=== PATIENT | female | born 1995 | race African-American/Black ===

== ENCOUNTER 2018-01-24 22:03 | Emergency (ER) | payer OTHER ==
[2018-01-25 00:48] LABS: Pregnancy Test - Urine (BHCG) Negative (Negative); Pregu Control Background? CLEAR/WHITE (CLR/WHITE); Pregu Control Bar Appear? YES (CONTROL BAR); Specific Gravity 1.026 (1.002-1.036)
[2018-01-25] MEDS ORDERED: Ketorolac Tromethamine 30 MG/ML VIAL ONE (01:08)
--- NOTE | 2018-01-25 08:11 | RAD ---
CERVICAL SPINE THREE VIEWS: HISTORY: A 2-year-old female with a history of neck pain. FINDINGS: Portions of C1 and the odontoid are obscured on the AP open-mouth view. No evidence for prevertebral soft tissue swelling. No malalignment. IMPRESSION: No acute process involving the visualized cervical spine. POS: OFF
== END 2018-01-25 01:40 | disposition home or self-care (01) ==
LOC: ERS 22:03
DX: M54.2 Cervicalgia (principal); V43.52XA Car driver injured in collision with other type car in traffic accident, initial encounter
CPT/HCPCS: 72040; 81025; 96372; J1885

== ENCOUNTER 2018-08-07 15:37 | Emergency (ER) | payer OTHER ==
[~2018-08-07 15:37] MED LIST: ISOVUE-370 76%-LOCM 1 ML ONE
[2018-08-07] MEDS ORDERED: Ondansetron HCl/PF 4 MG/2 ML Vial ONE (16:00)
[2018-08-07] MEDS ORDERED: Morphine 2 MG/ML SYRINGE ONE (16:00)
[2018-08-07 17:06] LABS: BHCG - Serum Negative (NEGATIVE); Pregs Control Background? CLEAR/WHITE (CLR/WHITE); Pregs Control Bar Appear? YES (CONTROL BAR)
[2018-08-07] MEDS ORDERED: Ketorolac Tromethamine 30 MG/ML VIAL ONE (17:21)
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
== END 2018-08-07 19:08 | disposition home or self-care (01) ==
LOC: ERS 15:37
DX: M54.5 Low back pain (principal); M54.6 Pain in thoracic spine; M54.2 Cervicalgia; R51 Headache; V43.52XA Car driver injured in collision with other type car in traffic accident, initial encounter; F31.9 Bipolar disorder, unspecified
CPT/HCPCS: 36415; 70450; 71260; 72125; 74177; 84703; 96372; J1885; J2270; J2405

== ENCOUNTER 2018-10-24 05:21 | Emergency (ER) | payer OTHER ==
[2018-10-24 06:16] LABS: Bilirubin Negative (Negative); Blood, Urine Large (Negative); Clarity CLEAR (Clear); Glucose, Urine (Dipstick) Negative (Negative); Leukocyte Negative (Negative); Nitrite Negative (Negative); Protein, Urine (Dipstick) Negative (Neg-Trace); Specific Gravity, Urine 1.011 (1.002-1.036); Urobilinogen 0.2 mg/dL (0.2-1.0); pH, Urine 6.5 (5.0-9.0)
[2018-10-24 06:19] LABS: Bacteria/HPF Rare-Few HPF (None Seen); Hyaline Casts/LPF 0-3 HYALINE CAST LPF (0-3 Hyaline); Pathc Cast-AUWi Flag 0.87 (0-2.49); RBC/HPF 0-3 HPF (0-3)
[2018-10-24 06:28] LABS: #Basophils 0.1 thou/uL (0.0-0.2); #Eosinphils 0.1 thou/uL (0.0-0.7); #Lymphocytes 3.7 thou/uL (1.20-3.40); #Monocytes 0.9 thou/uL (0.11-0.59); #Neutrophils 9.4 thou/uL (1.40-6.50); %Basophils 0.7 % (0.0-1.0); %Eosinophils 0.5 % (0.0-10.0); %Monocytes 6.1 % (0.0-10.0); %Neutrophils 66.7 % (42.0-75.0); Mean Corpuscular HGB CONC 33.8 g/dL (32.0-36.0); Mean Corpuscular Hemoglobin 31.6 pg (27.0-31.0); Mean Corpuscular Volume 93.4 fL (78.0-98.0); Mean Platelet Volume 9.4 fL (7.4-10.4); Platelet Count 260 thou/uL (130-400); RBC Distribution Width 11.3 % (11.5-14.5); Red Blood Cell (RBC) Count 4.45 mill/uL (4.20-5.40); White Blood Cell (WBC) Count 14.1 thou/uL (4.8-10.8)
--- NOTE | 2018-10-24 07:32 | ULT ---
TRANSABDOMINAL AND TRANSVAGINAL PELVIC ULTRASOUND WITH SPECTRAL DOPPLER EVALUATION: Date: 10/24/18 INDICATION: History of pelvic pain with bleeding. FINDINGS: The uterus measures 10.0 x 4.3 x 5.3 cm. There is a subendometrial fibroid measuring 1.3 cm involving the right lateral aspect of the uterine fundus. This was not definitely seen on the comparison exam dated 02/26/15. There is an intrauterine gestational sac present within the endometrial canal with a mean sac diamete r of 4.6 mm, giving an estimated gestational age of 5 weeks/2 days. No intrauterine pole or yol k sac is identified. The estimated due date by ultrasound is 06/24/2019. The right ovary measures 3.6 x 1.7 x 2.8 cm. The left ovary measures 3.7 x 3.2 x 1.8 cm. There is nor mal flow to both ovaries. No free fluid is evident. IMPRESSION: 1. Suspected early intrauterine gestational sac present. Recommend correlation with beta HCG level. No intrauterine pole or yolk sac is identified. Sonographic follow-up is recommended. 2. Small hypoechoic fibroid seen within the subendometrial region of the right lateral uterine fundu s. POS: BH
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
[2018-10-25 03:19] LABS: Chlamydia by PCR Not Detected (NotDetected); GC by PCR Not Detected (NotDetected)
== END 2018-10-24 09:15 | disposition home or self-care (01) ==
LOC: ERS 05:21
DX: O03.4 Incomplete spontaneous abortion without complication (principal); F31.9 Bipolar disorder, unspecified
CPT/HCPCS: 36415; 76856; 81003; 81015; 84702; 85025; 86900; 86901; 87480; 87491; 87510; 87591; 87660

== ENCOUNTER 2019-03-26 11:15 | Outpatient (CLI) | payer OTHER ==
--- NOTE | 2019-03-26 12:05 | ULT ---
EXAM: OB ultrasound COMPARISON: None. HISTORY: female. Evaluate anatomy. TECHNIQUE: Multiplanar grayscale and color Doppler transabdominal sonographic images are obtained. FINDINGS: There is a single intrauterine gestation in cephalic presentation. Cardiac Doppler demonstr ates heart tones with a heart rate of 155 beats per minute. The placenta is located posteriorly and at the fundus without evidence of placenta previa. Subjectively, there is a normal am ount of amniotic fluid. Amniotic fluid index was not calculated on this exam. The cervical length based on transabdominal imaging measures 2.9 centimeters. biometry measurements: BPD 4.51 cm -- 19 weeks 5 days HC 16.49 cm -- 19 weeks 2 days AC 13.7 cm -- 19 weeks 1 day FL 2.96 cm -- 19 weeks 1 day The estimated gestational age by ultrasound is 19 weeks 3 days with an DARIAN on08/17/2019. Gestational age by the last menstrual period is 17 weeks 5 days which does represent a discrepancy in gestational age compared to ultrasound. The estimated weight by ultrasound is 277 g per and series 10 ounces). This represents 98 perce ntile for weight. A 4 chambered heart is visualized. The cerebellum, visualized portions of the spine, kidneys, u rinary bladder, and cord insertion demonstrate a normal sonographic appearance. A three-vessel cord is not visualized, but there is flow on either side of the urinary bladder sugges ting a three-vessel cord.. No anomalies are seen. IMPRESSION: 1. Single intrauterine gestation in cephalic presentation with heart tones documented. Estimat ed gestational age by ultrasound is 19 weeks 3 days with DARIAN on 08/17/2019. 2. Estimated weight is 277 g (10 ounces).
== END 2019-03-26 11:16 | disposition home or self-care (01) ==
LOC: BICULT 11:15
PROVIDERS: ATTEND Family Medicine
DX: O09.892 Supervision of other high risk pregnancies, second trimester (principal); Z3A.19 19 weeks gestation of pregnancy
CPT/HCPCS: 76805

== ENCOUNTER 2019-04-09 10:32 | Outpatient (CLI) | payer OTHER ==
--- NOTE | 2019-04-09 11:00 | ULT ---
Exam: Limited OB ultrasound: HISTORY: Examination performed for cervical length evaluation COMPARISON: 03/26/2019 FINDINGS: Cephalic presentation. heart rate 158 bpm; cervical length equals 4.5 cm IMPRESSION: Cervical length 4.5 cm.
== END 2019-04-09 10:33 | disposition home or self-care (01) ==
LOC: SCSULT 10:32
PROVIDERS: ATTEND Family Medicine
DX: O09.892 Supervision of other high risk pregnancies, second trimester (principal)
CPT/HCPCS: 76815

== ENCOUNTER 2019-08-14 11:22 | Inpatient (IN) | payer OTHER ==
[2019-08-14 11:58] VITALS: BMI 24.7
[2019-08-14] MEDS: Lactated Ringer's 1,000 ML IV SCH ×2 (12:00→18:58)
[2019-08-14] MEDS ORDERED: FLU VACC QS2019-20(6MOS UP)/PF 60 MCG/0.5 ML SYRINGE IM ONE (12:15)
[2019-08-14 12:54] LABS: #Lymphocytes 1.8 thou/uL (1.20-3.40); #Monocytes 0.6 thou/uL (0.11-0.59); #Neutrophils 10.7 thou/uL (1.40-6.50); %Basophils 0.3 % (0.0-1.0); %Eosinophils 0.2 % (0.0-10.0); %Lymphocytes 13.5 % (21.0-51.0); %Monocytes 4.4 % (0.0-10.0); %Neutrophils 81.6 % (42.0-75.0); Mean Corpuscular HGB CONC 34.1 g/dL (32.0-36.0); Mean Corpuscular Volume 90.7 fL (78.0-98.0); Mean Platelet Volume 11.1 fL (7.4-10.4); Platelet Count 168 thou/uL (130-400); RBC Distribution Width 11.7 % (11.5-14.5); Red Blood Cell (RBC) Count 3.57 mill/uL (4.20-5.40); White Blood Cell (WBC) Count 13.1 thou/uL (4.8-10.8)
[2019-08-14 13:16] LABS: ALT (SGPT) 11 U/L (8-55); AST (SGOT) 15 U/L (5-34); Albumin 3.3 g/dL (3.5-5.0); Alkaline Phosphatase 117 U/L (40-110); Anion Gap 13 mmol/L (10-20); BUN (Urea Nitrogen) 7 mg/dL (7.0-18.7); Bilirubin, Total 0.2 mg/dL (0.2-1.2); Calc. Creatinine Clearance 157 mL/min (70-130); Calcium 8.9 mg/dL (7.8-10.44); Carbon Dioxide 22 mmol/L (22-29); Chloride 105 mmol/L (98-107); Estimated GFR-MDRD Greater than 90; Globulin 2.9 g/dL (2.4-3.5); Glucose 101 mg/dL (70-105); Protein, Total 6.2 g/dL (6.0-8.3); Sodium 136 mmol/L (136-145)
[2019-08-14 15:37] LABS: Creatinine, Urine 42.69 mg/dL (47-110); Protein, Urine Random Quant Less than 10 mg/dL (1-14)
[2019-08-14] MEDS ORDERED: Ibuprofen 800 MG TAB PO PRN (17:17)
[2019-08-14] MEDS ORDERED: Butorphanol Tartrate 1 MG/ML VIAL SLOW IVP PRN (17:17)
[2019-08-14] MEDS ORDERED: Carboprost 250 MCG/ML AMP IM PRN (17:17)
[2019-08-14] MEDS ORDERED: HYDROcodone/Acetaminophen 5/325 mg Tablet PO PRN (17:17)
[2019-08-14] MEDS ORDERED: Ondansetron PF 4 MG/2 ML Vial IVP PRN (17:17)
[2019-08-14] MEDS ORDERED: Diphenoxylate HCl/Atropine Tablet PO PRN (17:17)
[2019-08-14] MEDS ORDERED: Promethazine HCl 25 MG/ML VIAL IM PRN (17:17)
[2019-08-14] MEDS ORDERED: Misoprostol 200 MCG TAB PR PRN (17:17)
[2019-08-14] MEDS ORDERED: Lidocaine 1% (PF) 30 ML VIAL SC PRN (17:17)
[2019-08-14] MEDS ORDERED: hydrALAZINE 20 MG/ML VIAL SLOW IVP PRN (17:17)
[2019-08-14] MEDS ORDERED: Penicillin G Potassium 5 MILL.UNITS in Sodium Chloride 0.9% 100 ML IVPB ONE (17:30)
[2019-08-14] MEDS ORDERED: NS w/ Oxytocin 10 units 500 ML IV SCH ×2 (17:30)
[2019-08-14 18:52] LABS: HBSAg Index 0.18 S/CO (0-0.99); Hep B Surf Ag Non-Reactive S/CO (NonReactive); Syphilis Antibody Nonreactive (Nonreactive); Syphilis Antibody Index 0.04 S/CO (<1.00 Non-Reactive)
[2019-08-14] MEDS: Misoprostol 100 MCG TAB PO SCH (23:22)
[2019-08-15] MEDS: Penicillin G 2.5 MILL.units 2.5 MILL.UNITS in Premix Bag 1 BAG IVPB SCH ×2 (03:26→07:20)
[2019-08-15] MEDS ORDERED: Fentanyl 4 mcg/Bup 0.1% Cadd 100 ML ONE (04:10)
[2019-08-15] MEDS: NS / Oxytocin 40 units/1000ml 1,000 ML IV PRN ×2 (08:05→09:08)
[2019-08-15] MEDS ORDERED: Amlodipine 5 MG TAB PO SCH (09:00)
[2019-08-15] MEDS ORDERED: hydrALAZINE 20 MG/ML VIAL SLOW IVP PRN (09:24)
[2019-08-15] MEDS ORDERED: Ondansetron PF 4 MG/2 ML Vial IVP PRN (09:24)
[2019-08-15] MEDS ORDERED: Bisacodyl 10 MG SUPP PR PRN (09:24)
[2019-08-15] MEDS ORDERED: diphenhydrAMINE 25 MG CAP PO PRN (09:24)
[2019-08-15] MEDS ORDERED: Benzocaine-Menthol 82.5 ML CAN TOP PRN (09:24)
[2019-08-15] MEDS ORDERED: Adacel (T-DAP) 0.5 ML SYRINGE IM ONE (09:24)
[2019-08-15] MEDS ORDERED: Preparation H Ointment 28 GM TUBE PR PRN (09:24)
[2019-08-15] MEDS ORDERED: Lanolin Ointment 7 GM TUBE TOP PRN (09:24)
[2019-08-15] MEDS ORDERED: NS / Oxytocin 40 units/1000ml 1,000 ML IV SCH (09:24)
[2019-08-15] MEDS ORDERED: Milk Of Magnesia 30 ML UDCUP PO PRN (09:24)
[2019-08-15] MEDS: Misoprostol 100 MCG TAB PO SCH (10:17)
[2019-08-15] MEDS: HYDROcodone/Acetaminophen 5/325 mg Tablet PO PRN ×2 (12:12→15:16)
[2019-08-15] MEDS: Ibuprofen 800 MG TAB PO SCH ×2 (13:32→21:48)
[2019-08-15] MEDS: Ferrous Sulfate 325 MG TAB PO SCH (17:23)
[2019-08-15] MEDS: Docusate Calcium (SURFAK) 240 MG CAP PO SCH (21:48)
[2019-08-16] MEDS: HYDROcodone/Acetaminophen 5/325 mg Tablet PO PRN ×3 (00:36→20:47)
[2019-08-16 05:25] LABS: Mean Corpuscular HGB CONC 33.3 g/dL (32.0-36.0); Mean Corpuscular Hemoglobin 31.1 pg (27.0-31.0); Mean Corpuscular Volume 93.4 fL (78.0-98.0); Platelet Count 148 thou/uL (130-400); RBC Distribution Width 11.8 % (11.5-14.5); Red Blood Cell (RBC) Count 3.19 mill/uL (4.20-5.40); White Blood Cell (WBC) Count 13.8 thou/uL (4.8-10.8)
[2019-08-16] MEDS: Ibuprofen 800 MG TAB PO SCH ×3 (05:52→21:33)
[2019-08-16] MEDS: Penicillin G 2.5 MILL.units 2.5 MILL.UNITS in Premix Bag 1 BAG IVPB SCH ×2 (07:25→07:26)
[2019-08-16] MEDS: Docusate Calcium (SURFAK) 240 MG CAP PO SCH ×2 (09:32→21:33)
[2019-08-16] MEDS: Prenatal Vitamin 1 TAB PO SCH (09:32)
[2019-08-16] MEDS: Amlodipine 5 MG TAB PO SCH (09:32)
[2019-08-16] MEDS: Ferrous Sulfate 325 MG TAB PO SCH ×2 (09:33→18:13)
[2019-08-17] MEDS: HYDROcodone/Acetaminophen 5/325 mg Tablet PO PRN (02:21)
[2019-08-17] MEDS: Ibuprofen 800 MG TAB PO SCH (06:29)
[2019-08-17 08:32] VITALS: TEMP 98.6
[2019-08-17] MEDS: Ferrous Sulfate 325 MG TAB PO SCH (08:54)
[2019-08-17] MEDS: Docusate Calcium (SURFAK) 240 MG CAP PO SCH (08:56)
[2019-08-17] MEDS: Prenatal Vitamin 1 TAB PO SCH (08:56)
[2019-08-17] MEDS: Amlodipine 5 MG TAB PO SCH (08:56)
[2019-08-17 08:58] VITALS: BP 125/81
== END 2019-08-17 10:54 | disposition home or self-care (01) | DRG 807 ==
LOC: L&D/OP 11:22 → L&D 11:30 → 3SE 08-15 10:13
PROVIDERS: ADMIT Family Medicine; ATTEND Family Medicine
PROC: 10E0XZZ Delivery of Products of Conception, External Approach (ICD-10-PCS; principal; 2019-08-14)
PROC: 3E033VJ Introduction of Other Hormone into Peripheral Vein, Percutaneous Approach (ICD-10-PCS; 2019-08-14)
DX: O76 Abnormality in fetal heart rate and rhythm complicating labor and delivery (principal); Z37.0 Single live birth; O13.9 Gestational [pregnancy-induced] hypertension without significant proteinuria, unspecified trimester; O99.824 Streptococcus B carrier state complicating childbirth; Z3A.39 39 weeks gestation of pregnancy
CPT/HCPCS: 36415; 80053; 82570; 84156; 85025; 85027; 86780; 86850; 86900; 86901; 87340; J2540; J3490

== ENCOUNTER 2020-01-08 15:11 | Emergency (ER) | payer OTHER ==
[2020-01-08] MEDS ORDERED: Acetaminophen 500 MG TAB ONE (15:39)
[2020-01-08] MEDS ORDERED: Azithromycin 500 MG VIAL ONE (15:59)
[2020-01-08] MEDS ORDERED: cefTRIAXone\\ROCEPHIN 1 GM VIAL ONE (15:59)
[2020-01-08 16:06] LABS: #Lymphocytes 0.4 thou/uL (1.20-3.40); #Monocytes 0.6 thou/uL (0.11-0.59); #Neutrophils 8.2 thou/uL (1.40-6.50); %Basophils 0.1 % (0.0-1.0); %Eosinophils 0.1 % (0.0-10.0); %Lymphocytes 3.9 % (21.0-51.0); %Neutrophils 89.9 % (42.0-75.0); Hemoglobin 11.9 g/dL (12.0-16.0); Mean Corpuscular HGB CONC 34.9 g/dL (32.0-36.0); Mean Corpuscular Hemoglobin 31.2 pg (27.0-31.0); Mean Corpuscular Volume 89.5 fL (78.0-98.0); Mean Platelet Volume 8.9 fL (7.4-10.4); Platelet Count 234 thou/uL (130-400); RBC Distribution Width 11.9 % (11.5-14.5); Red Blood Cell (RBC) Count 3.82 mill/uL (4.20-5.40); White Blood Cell (WBC) Count 9.1 thou/uL (4.8-10.8)
[2020-01-08 16:52] LABS: Globulin 2.9 g/dL (2.4-3.5); Glucose 89 mg/dL (70-105)
[2020-01-08 17:23] LABS: ALT (SGPT) 9 U/L (8-55); AST (SGOT) 12 U/L (5-34); Alkaline Phosphatase 73 U/L (40-110); Anion Gap 14 mmol/L (10-20); BUN (Urea Nitrogen) 8 mg/dL (7.0-18.7); Bilirubin, Total 0.3 mg/dL (0.2-1.2); Calc. Creatinine Clearance 0 mL/min (70-130); Calcium 9.4 mg/dL (7.8-10.44); Carbon Dioxide 20 mmol/L (22-29); Chloride 104 mmol/L (98-107); Estimated GFR-MDRD Greater than 90; Lipase 25 U/L (8-78); Potassium 3.5 mmol/L (3.5-5.1); Protein, Total 7.1 g/dL (6.0-8.3); Sodium 134 mmol/L (136-145)
[2020-01-08 17:34] LABS: Lactic Acid 0.9 mmol/L (0.5-2.2)
[2020-01-08 18:05] LABS: Bilirubin Negative (Negative); Blood, Urine Negative (Negative); Clarity Clear (Clear); Glucose, Urine (Dipstick) Normal (Negative); Leukocyte Negative Leu/uL (Negative); Nitrite Negative (Negative); Protein, Urine (Dipstick) 20 mg/dL (Neg-Trace); Urobilinogen Normal mg/dL (Less than 2)
[2020-01-08 18:06] LABS: Mucous/LPF Rare LPF (<2+)
[2020-01-08 18:15] LABS: Bacteria/HPF Rare-Few HPF (None Seen)
--- NOTE | 2020-01-08 18:44 | RAD ---
EXAM: CHEST ONE VIEW HISTORY: Cough and back pain. COMPARISON: 02/08/2014 FINDINGS: The cardiac silhouette and pulmonary vasculature is within normal limits. The lungs are clear. The os seous structures are intact. No interval change. IMPRESSION: No acute cardiopulmonary process.
--- NOTE | 2020-01-10 13:43 | EKG ---
Test Reason : Blood Pressure : / mmHG Vent. Rate : 121 BPM Atrial Rate : 121 BPM P-R Int : 150 ms QRS Dur : 072 ms QT Int : 314 ms P-R-T Axes : 044 083 021 degrees QTc Int : 445 ms Sinus tachycardia Nonspecific T wave abnormality Abnormal ECG Confirmed by MILTON MEJIA ([id number]), newspaper photo editor ANKIT PHILLIPS ([id number]) on 01/10/2020 1:43:38 PM Referred By: Confirmed By:MILTON Machado
== END 2020-01-08 20:27 | disposition home or self-care (01) ==
LOC: ERS 15:11
DX: O21.9 Vomiting of pregnancy, unspecified (principal); O99.511 Diseases of the respiratory system complicating pregnancy, first trimester; J06.9 Acute upper respiratory infection, unspecified; O16.1 Unspecified maternal hypertension, first trimester; O99.341 Other mental disorders complicating pregnancy, first trimester; F31.9 Bipolar disorder, unspecified; Z3A.10 10 weeks gestation of pregnancy; Z79.899 Other long term (current) drug therapy
CPT/HCPCS: 71045; 80053; 81001; 83605; 83690; 85025; 87040; 87804; 93005; 96361; 96365; 96366; 96367; J0456; J0696

== ENCOUNTER 2020-01-30 23:56 | Emergency (ER) | payer OTHER ==
[2020-01-31 00:28] LABS: Bacteria/HPF None Seen HPF (None Seen); Bilirubin Negative (Negative); Blood, Urine Negative (Negative); Clarity Turbid (Clear); Glucose, Urine (Dipstick) Normal (Negative); Leukocyte 75 Leu/uL (Negative); Nitrite Negative (Negative); Protein, Urine (Dipstick) 20 mg/dL (Neg-Trace); Urobilinogen 3 mg/dL (Less than 2)
[2020-01-31 00:41] LABS: #Lymphocytes 1.4 thou/uL (1.20-3.40); #Monocytes 0.5 thou/uL (0.11-0.59); %Basophils 0.3 % (0.0-1.0); %Eosinophils 0.1 % (0.0-10.0); %Lymphocytes 10.7 % (21.0-51.0); %Monocytes 3.6 % (0.0-10.0); %Neutrophils 85.3 % (42.0-75.0); Mean Corpuscular HGB CONC 35.9 g/dL (32.0-36.0); Mean Corpuscular Hemoglobin 32.2 pg (27.0-31.0); Mean Corpuscular Volume 89.6 fL (78.0-98.0); Mean Platelet Volume 9.4 fL (7.4-10.4); Platelet Count 204 thou/uL (130-400); RBC Distribution Width 11.7 % (11.5-14.5); Red Blood Cell (RBC) Count 3.72 mill/uL (4.20-5.40); White Blood Cell (WBC) Count 12.9 thou/uL (4.8-10.8)
[2020-01-31 00:52] LABS: ALT (SGPT) 7 U/L (8-55); AST (SGOT) 11 U/L (5-34); Alkaline Phosphatase 63 U/L (40-110); Anion Gap 14 mmol/L (10-20); BUN (Urea Nitrogen) 7 mg/dL (7.0-18.7); Bilirubin, Total 0.3 mg/dL (0.2-1.2); Calc. Creatinine Clearance 0 mL/min (70-130); Calcium 9.5 mg/dL (7.8-10.44); Carbon Dioxide 18 mmol/L (22-29); Chloride 106 mmol/L (98-107); Estimated GFR-MDRD Greater than 90; Globulin 2.8 g/dL (2.4-3.5); Glucose 83 mg/dL (70-105); Potassium 3.5 mmol/L (3.5-5.1); Protein, Total 6.8 g/dL (6.0-8.3); Sodium 134 mmol/L (136-145)
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
== END 2020-01-31 02:49 | disposition home or self-care (01) ==
LOC: ERS 23:56
DX: O99.89 Other specified diseases and conditions complicating pregnancy, childbirth and the puerperium (principal); R10.30 Lower abdominal pain, unspecified; O10.911 Unspecified pre-existing hypertension complicating pregnancy, first trimester; O99.341 Other mental disorders complicating pregnancy, first trimester; F41.9 Anxiety disorder, unspecified; F31.9 Bipolar disorder, unspecified; Z79.899 Other long term (current) drug therapy; V49.9XXA Car occupant (driver) (passenger) injured in unspecified traffic accident, initial encounter; Z3A.12 12 weeks gestation of pregnancy
CPT/HCPCS: 36415; 76856; 80053; 81003; 81015; 85025; 86900; 86901

== ENCOUNTER 2022-10-21 18:53 | Inpatient (IN) | payer OTHER ==
[2022-10-21] MEDS ORDERED: Boostrix 0.5 ML (Tdap) VIAL (>/=7 yrs of age) ONE (19:22)
[2022-10-21 19:33] LABS: #Lymphocytes 2.4 thou/uL (1.20-3.40); #Monocytes 0.7 thou/uL (0.11-0.59); #Neutrophils 11.7 thou/uL (1.40-6.50); %Basophils 0.2 % (0.0-1.0); %Eosinophils 0.2 % (0.0-10.0); %Lymphocytes 16.2 % (21.0-51.0); %Monocytes 4.6 % (0.0-10.0); %Neutrophils 78.8 % (42.0-75.0); Hemoglobin 13.1 g/dL (12.0-16.0); Mean Corpuscular HGB CONC 32.8 g/dL (32.0-36.0); Mean Corpuscular Hemoglobin 31.7 pg (27.0-31.0); Mean Corpuscular Volume 96.6 fl (78.0-98.0); Mean Platelet Volume 9.5 fL (7.4-10.4); Platelet Count 213 10x3/uL (130-400); RBC Distribution Width 11.5 % (11.5-14.5); Red Blood Cell (RBC) Count 4.14 mill/uL (4.20-5.40); White Blood Cell (WBC) Count 14.8 10x3/uL (4.8-10.8)
[2022-10-21 19:56] LABS: ALT (SGPT) 18 U/L (8-55); AST (SGOT) 14 U/L (5-34); Acetaminophen Less than 10.0 mcg/mL (10.0-30.0); Albumin 4.1 g/dL (3.5-5.0); Alcohol Less than 10 mg/dL (Less than 10); Alkaline Phosphatase 83 U/L (40-110); Anion Gap 13 mmol/L (10-20); BUN (Urea Nitrogen) 12 mg/dL (7.0-18.7); Bilirubin, Total 0.3 mg/dL (0.2-1.2); Calc. Creatinine Clearance 0 mL/min (70-130); Calcium 9.1 mg/dL (7.8-10.44); Carbon Dioxide 22 mmol/L (22-29); Chloride 108 mmol/L (98-107); Estimated GFR 98; Globulin 2.8 g/dL (2.4-3.5); Glucose 115 mg/dL (70-105); Potassium 3.7 mmol/L (3.5-5.1); Protein, Total 6.9 g/dL (6.0-8.3); Salicylate Less than 8.0 mg/dL (15.0-30.0); Sodium 139 mmol/L (136-145)
[2022-10-21] MEDS ORDERED: hydrALAZINE 20 MG/ML VIAL SLOW IVP PRN (20:26)
[2022-10-21] MEDS ORDERED: Dextrose 50% Abboject 50 ML SYRINGE SLOW IVP PRN (20:26)
[2022-10-21] MEDS ORDERED: Dextrose 5% in Water 1,000 ML IV PRN (20:26)
[2022-10-21] MEDS ORDERED: TETANUS, DIPHTHERIA TOX,ADULT (TDVAX) 0.5 ML VIAL IM ONE (20:26)
[2022-10-21] MEDS ORDERED: Ondansetron PF 4 MG/2 ML Vial IVP PRN (20:26)
[2022-10-21] MEDS ORDERED: traMADol HCl 50 MG TAB PO PRN (20:29)
[2022-10-21] MEDS ORDERED: Cyclobenzaprine 10 MG TAB PO PRN (20:29)
[2022-10-21 20:31] LABS: Magnesium 1.8 mg/dL (1.6-2.6); Phosphorus 3.1 mg/dL (2.3-4.7)
[2022-10-21] MEDS ORDERED: Morphine 4 MG/ML VIAL ONE (20:55)
[2022-10-21] MEDS ORDERED: Potassium Phosphate 15 MMOL in Sodium Chloride 0.9% 250 ML 250 ML IVPB SCH (21:00)
[2022-10-21] MEDS ORDERED: Magnesium 2 GM/50 ML(in water) 2 GM in Premix Bag 1 BAG IVPB SCH (21:00)
[2022-10-21] MEDS ORDERED: CEFAZOLIN 2 GM in Sodium Chloride 0.9% 100 ML IVPB SCH (22:00)
[2022-10-21 22:30] VITALS: BMI 24.2
[2022-10-21] MEDS: Gabapentin 300 MG CAP PO SCH (22:52)
[2022-10-21] MEDS: Famotidine/PF 20 mg/2ml Vial SLOW IVP SCH (22:52)
[2022-10-21] MEDS: Ibuprofen 200 MG TAB PO SCH (22:53)
[2022-10-21] MEDS: Senokot S 8.6-50 MG TAB PO SCH (22:54)
[2022-10-21] MEDS: traMADol HCl 50 MG TAB PO PRN (22:54)
[2022-10-21] MEDS: Acetaminophen 500 MG TAB PO SCH (22:58)
[2022-10-22] MEDS ORDERED: Sodium Chloride 0.9% 1,000 ML IV SCH (00:01)
[2022-10-22 00:23] LABS: SARS-CoV-2 NAA Rapid Test Not Detected (NotDetected)
[2022-10-22] MEDS: Morphine 4 MG/ML VIAL SLOW IVP PRN ×2 (01:43→14:06)
[2022-10-22 02:23] LABS: Troponin I Less than 0.010 ng/mL (< 0.028)
[2022-10-22 04:29] LABS: Amphetamine Not Detected (NotDetected); Barbiturates Screen Not Detected (NotDetected); Benzodiazepine Screen Not Detected (NotDetected); Cocaine Metabolite Screen Not Detected (NotDetected); Methadone Not Detected (NotDetected); Methamphetamine Not Detected (NotDetected); Opiate Screen Detected (NotDetected); Oxycodone Screen Not Detected (NotDetected); Phencyclidine (PCP) Not Detected (NotDetected); THC/Cannabinoid Screen Not Detected (NotDetected); Tricyclic Screen Not Detected (NotDetected)
[2022-10-22] MEDS: Ibuprofen 200 MG TAB PO SCH ×2 (06:05→14:06)
[2022-10-22] MEDS: Acetaminophen 500 MG TAB PO SCH ×3 (06:05→17:33)
[2022-10-22 06:19] LABS: #Monocytes 0.7 thou/uL (0.11-0.59); #Neutrophils 10.6 thou/uL (1.40-6.50); %Basophils 0.3 % (0.0-1.0); %Eosinophils 0.1 % (0.0-10.0); %Lymphocytes 15.3 % (21.0-51.0); %Monocytes 4.9 % (0.0-10.0); %Neutrophils 79.4 % (42.0-75.0); Hemoglobin 12.6 g/dL (12.0-16.0); Mean Corpuscular Hemoglobin 32.1 pg (27.0-31.0); Mean Corpuscular Volume 94.4 fl (78.0-98.0); Mean Platelet Volume 9.6 fL (7.4-10.4); Platelet Count 214 10x3/uL (130-400); RBC Distribution Width 11.4 % (11.5-14.5); Red Blood Cell (RBC) Count 3.93 mill/uL (4.20-5.40); White Blood Cell (WBC) Count 13.3 10x3/uL (4.8-10.8)
[2022-10-22 06:44] LABS: Anion Gap 10 mmol/L (10-20); BUN (Urea Nitrogen) 10 mg/dL (7.0-18.7); Calc. Creatinine Clearance 129 mL/min (70-130); Calcium 8.7 mg/dL (7.8-10.44); Carbon Dioxide 22 mmol/L (22-29); Chloride 110 mmol/L (98-107); Estimated GFR 120; Glucose 109 mg/dL (70-105); Magnesium 2.4 mg/dL (1.6-2.6); Potassium 4.2 mmol/L (3.5-5.1); Sodium 138 mmol/L (136-145)
[2022-10-22 06:45] LABS: INR-International Normal Ratio 0.9; PTT 27.7 sec (22.9-36.1); Prothrombin Time 12.6 sec (12.0-14.7)
[2022-10-22] MEDS: Senokot S 8.6-50 MG TAB PO SCH (07:49)
[2022-10-22] MEDS: Famotidine/PF 20 mg/2ml Vial SLOW IVP SCH (08:32)
[2022-10-22] MEDS: CEFAZOLIN 2 GM in Sodium Chloride 0.9% 100 ML IVPB SCH ×2 (08:32→17:32)
[2022-10-22] MEDS: Gabapentin 300 MG CAP PO SCH ×2 (08:35→14:06)
[2022-10-22] MEDS ORDERED: Polyethylene Glycol 3350 17 GM Packet PO SCH (09:00)
[2022-10-22] MEDS ORDERED: Ondansetron PF 4 MG/2 ML Vial ONE ×2 (09:29→10:03)
[2022-10-22] MEDS ORDERED: Fentanyl 250 MCG/5 ML VIAL ONE (09:40)
[2022-10-22] MEDS ORDERED: Dexmedetomidine 200 MCG/2 ML VIAL ONE (09:40)
[2022-10-22] MEDS ORDERED: Neomycin-Polymyxin 1 ML AMP ONE (09:42)
[2022-10-22] MEDS ORDERED: Bupivacaine PF 0.5% 30 ML VIAL ONE (09:42)
[2022-10-22] MEDS ORDERED: Midazolam HCl 2 mg/2 ml Vial ONE (10:02)
[2022-10-22] MEDS ORDERED: Dexamethasone 20 MG/5 ML VIAL ONE (10:03)
[2022-10-22] MEDS ORDERED: Ketorolac Tromethamine 30 MG/ML VIAL ONE (10:03)
[2022-10-22] MEDS ORDERED: PROPOFOL 200 MG/20 ML VIAL ONE (10:03)
[2022-10-22 10:13] LABS: BHCG - Serum Negative (NEGATIVE); Pregs Control Background? CLEAR/WHITE (CLR/WHITE); Pregs Control Bar Appear? YES (CONTROL BAR)
[2022-10-22] MEDS ORDERED: Ondansetron HCl/PF 4 MG/2 ML Vial IVP PRN (11:18)
[2022-10-22] MEDS ORDERED: Promethazine HCl 25 MG/ML VIAL IM PRN (11:18)
[2022-10-22] MEDS ORDERED: HYDROmorphone 2 MG/ML VIAL SLOW IVP PRN (11:18)
[2022-10-22] MEDS ORDERED: Promethazine HCl 25 MG/ML VIAL IVPB PRN (11:18)
[2022-10-22 17:01] VITALS: BP 139/92; TEMP 97.9
[2022-10-22] MEDS: traMADol HCl 50 MG TAB PO PRN (17:33)
== END 2022-10-22 18:35 | disposition home or self-care (01) | DRG 906 ==
LOC: ERS 18:53 → SURG B 20:26
PROVIDERS: ADMIT Surgery; ATTEND Surgery
PROC: 0PST04Z Reposition Right Finger Phalanx with Internal Fixation Device, Open Approach (ICD-10-PCS; principal; 2022-10-22)
PROC: 0LQ70ZZ Repair Right Hand Tendon, Open Approach (ICD-10-PCS; 2022-10-22)
DX: S68.124A Partial traumatic metacarpophalangeal amputation of right ring finger, initial encounter (principal); S62.632A Displaced fracture of distal phalanx of right middle finger, initial encounter for closed fracture; R45.88 Nonsuicidal self-harm; S68.116A Complete traumatic metacarpophalangeal amputation of right little finger, initial encounter; X78.1XXA Intentional self-harm by knife, initial encounter
CPT/HCPCS: 36415; 70450; 71045; 80048; 80053; 80306; 80307; 83735; 84100; 84443; 84484; 84703; 85025; 85610; 85730; 90471; 90715; 93005; 93010; 96374; C1894; G0390; J1100; J1885; J2250; J2270; J2405; J2704; J3010; J3475; J3490; J7050; S0020; S0028; U0002